=== PATIENT | male | born 2000 | race Caucasian/White ===

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

== ENCOUNTER → 2024-06-19 | Outpatient (CLI) | payer OTHER ==
[~2024-06-19] MED LIST changes: +ENTRESTO 49 MG1 EACH PO; +Ferrous Sulfat325 M2 PO; +Lasix20 MG PO; +METO25ER PO; +ONDA4 PO; +PANT40 PO; +SUCR1 PO
[2024-06-21 22:06] LABS: QUANTIFERON MITOGEN MINUS NIL 9.98 IU/mL; QUANTIFERON NIL 0.02 IU/mL; QUANTIFERON PLUS TB1 MINUS NIL 0.02 IU/mL (<=0.34); QUANTIFERON PLUS TB2 MINUS NIL 0.01 IU/mL (<=0.34)
== END | disposition home or self-care (01) ==
LOC: LAB 13:12 → LAB SHORT 13:12
PROVIDERS: Family Medicine
DX: Z11.1 Encounter for screening for respiratory tuberculosis (principal)
CPT/HCPCS: 86480